=== PATIENT | female | born 1985 | race Caucasian/White ===

== ENCOUNTER 2017-01-05 23:33 | Emergency (ER) | payer SELFPAY ==
--- NOTE | 2017-01-06 01:59 | ED CLINICAL REPORT ---
Clinical Report - Physicians/Mid Levels [facility] [address] [place] [address] 01/05/2017 23:33 Patient: CAITLYN ESPINO Time Seen: 00:10. Arrived- By private vehicle. Historian- patient. HISTORY OF PRESENT ILLNESS Chief Complaint: LOWER EXTREMITY PAIN and SWELLING. Severity is described as being moderate. The quality is noted to be "pain" and similar to prior episodes. No radiation. This started yesterday and is still present (Ms Espino notes Right medial thigh tenderness similar to a prior DVT. Her sister has a clotting disorder. She believes that it is the Factor V Leiden defect.). Symptoms located in the area of the right thigh. The patient has not had redness. No swelling, bladder dysfunction, bowel dysfunction, sensory loss or motor loss. No difficulty walking. Patient denies an injury. Similar symptoms previously: Once. ( DVT). REVIEW OF SYSTEMS No fever, chest pain, cough, difficulty breathing or abdominal pain. No black stools, bloody stools or abnormal bleeding. PAST HISTORY ( PCP: Aaron Whitman Illness: DVT and bipolar illness). SOCIAL HISTORY Current every day smoker. FAMILY HISTORY ([place] with factor 5 Leyden). ADDITIONAL NOTES The nursing notes have been reviewed. PHYSICAL EXAM Vital Signs: 01/06/2017 02:04 BP: 116/76. HR: 95. RR: 16. O2 saturation: 100%. Pain level now: 03/14. 01/06/2017 01:38 BP: 122/87. HR: 87. RR: 16. O2 saturation: 100%. 01/05/2017 23:47 BP: 130/82. HR: 110. RR: 16. O2 saturation: 100%. Temp: 98.5 F. Pain level now: 10. Appearance: Alert. No acute distress. CVS: Heart sounds normal. Respiratory: No respiratory distress. Breath sounds normal. Abdomen: Soft and nontender. Skin: Skin warm. Normal skin color. Extremities: Right thigh: mild tenderness located in the medial aspect of mid thigh. Neurovascular intact distally. No erythema, swelling, abrasion, ecchymosis or foreign body. No deformity. No signs of infection involving the lower extremities. No lower extremity edema. Extremities otherwise negative. LABS, X-RAYS, AND EKG Lower Extremity Sonography: Name: CAITLYN ESPINO : 89 Sex: Female Age: 31 MR#: [id number] Pt Status: DEP ER Ordering Provider: LUIS MANUEL HERNANDEZ MD REPORT #: [id number] DATE OF EXAM(S): 01/06/17 PROCEDURE: US VENOUS - RIGHT EXT INDICATION: SWELLING TECHNIQUE: Duplex sonography of the deep venous system in the right lower extremity was performed. Compression and augmentation techniques were used. COMPARISON: None. FINDINGS: Each interrogated segment of deep vein from the common femoral vein into the calf veins demonstrates normal compressibility, augmentation and/or color Doppler flow without filling defect. The greater saphenous vein at the saphenous femoral junction is present. Greater saphenous vein in the proximal thigh demonstrates normal compressibility. The distal greater saphenous vein demonstrates expansile, incompressible, mildly hypoechoic filling defect and no visible flow or augmentation. IMPRESSION: 1. Occlusive thrombus in the distal greater saphenous vein in the calf and extending proximal to the popliteal region/distal thigh. 2. No thrombus within the deep system in the calf or thigh. Dictated by: ASHTYN CANADA MD D: ALONZO;01/06/17741 <Electronically signed by ASHTYN CANADA MD in [place]> 01/06/17741. PROGRESS AND PROCEDURES Course of Care: Ms Espino technically does not have a DVT. She has a long proximal SVT but she has a prior DVT and a sister with a clotting abnormality. I believe this warrants treating this episode as a DVT. 08:48 01/06/17. Discussed with Dr Canada. Following a discussion with Dr Canada following patient discharge she confirmed my thinking. I instructed charge nurse Juli Marshall RN to contact the patient by phone to confirm my intensions at the time of discharge. Disposition: Discharged. Condition: stable. CLINICAL IMPRESSION Deep venous thrombosis. Superficial thrombophlebitis of the right leg (possibly). INSTRUCTIONS (THIS IS PROBABLY A SUPERFICIAL THROMBOPHLEBITIS (BLOOD CLOT) BUT MIGHT BE A DEEP BLOOD CLOT AND YOU HAVE HAD A PRIOR BLOOD CLOT. I WILL TALK WITH THE RADIOLOGIST IN THE MORNING. FOR NOW YOU NEED TO TAKE LOVENOX BLOOD THINNER. YOU DR NEEDS TO CHECK YOU FOR CLOTTING PROBLEMS). Prescription Medications: Lovenox 100 mg SQ. Administer every 12 hours for 5 days. Dispense ten (10) pre-filled syringes. No refills. Follow-up: Follow up with your doctor. Call for the next available appointment. (Electronically signed by Luis Manuel Hernandez MD 01/07/2017 12:01) Addenda for CAITLYN ESPINO VisitID: [id number] Date: 01/05/2017 01/06/2017 10:39 1025 message left @[phone], per Dr Hernandez request, 1) inform her that she does need to be on the anticoagulant, 2) she needs to see her physician as soon as possible so he can get her started on an oral anticoagulant; she has a superficial blood clot in her leg but because of her hx and her family hx, Dr Hernandez and the Radiologist feel she needs to be treated with oral anticoagulants (was sent out with lovenox for 5 days) (Electronically signed by Juli Marshall R.N. - 01/06/2017 10:39) 01/06/2017 19:45 1925 pt returned call, advised her of Dr Hernandez's instructions: 1) she needs to be on oral anticoagulant; 2) she needs to be followed-up MICHOACANO with her primary to get that started; she stated she had an appt scheduled for next Thursday, but would call tomorrow and reschedule for sooner; questions answered; pt verbalized understanding of the importance of follow-up (Electronically signed by Juli Marshall R.N. - 01/06/2017 19:45)
--- NOTE | 2017-01-06 01:59 | ED ORDER SUMMARY ---
..... Patient: CAITLYN CUEVA N OrderSheet [facility] VisitID: [id number] [place] [address] 31y, F Registration Date/Time: 01/05/2017 ORDER SHEET Weight: 102.0 kg (stated) Allergies: No Known Drug Allergy GENERAL ORDERS: US Venous Right Urgent (00:14 01/06/2017 Maura VERDUGO) (Ack 0:18 Shari) (1:40 Valarie) MEDICATION ORDERS: Lovenox Subcut 100 mg (NOW) (01:57 01/06/2017 Maura VERDUGO) (Ack 2:02 JQuivey R.N.) (2:10 JQuiveish R.N.) IV FLUIDS: ORDER SHEET NOTES: [Electronically signed by Keenan Villavicencio R.N. (02:18 01/06/2017)] [Electronically signed by Chepe Doty MD (12:01 01/07/2017)] [Electronically locked/signed by Keenan Villavicencio R.N. (02:18 01/06/2017)]
--- NOTE | 2017-01-06 01:59 | ED NURSING NOTES ---
Clinical Report - Nurses [facility] [address] [place] [address] 01/05/2017 23:33 Patient: CAITLYN CUEVA TRIAGE Triage time 23:47 Jan 05 2017. Acuity: LEVEL 3. Chief Complaint: (right upper and lower leg pain). SEPSIS SCREEN: Sepsis Screen. Negative (no infection suspected/documented). JERILYN COMA SCORE: Jerilyn Coma Scale: 15- eyes open spontaneously (4); best verbal response- oriented x 4 (5); best motor response- obeys commands (6). --23:54 Joycelyn Ochoa R.N. 23:47 01/05/17. BP: 130/82. HR: 110. RR: 16. O2 saturation: 100%. Temp: 98.5 F. Pain level now: 01/12. --23:54 Joycelyn Ochoa R.N. Weight: 102 kg stated. Height/Length: 66 inches Per Patient. BMI: 36.3. --23:46 Joycelyn Ochoa R.N. Medications [facility]. --23:50 Joycelyn Ochoa R.N. Clonazepam. --23:50 Joycelyn Ochoa R.N. Zubsolv Sublingual. --23:50 Joycelyn Ochoa R.N. Medication/allergy information source: the patient. --23:54 Joycelyn Ochoa R.N. Allergies No Known Drug Allergy. --02:12 Keenan Villavicencio R.N. History Arrived by private vehicle. Historian: patient. Accompanied by family. Onset. (2 days). ( states pain started in lower leg 2 days ago and now feels like sludge is in your veins in your upper leg.). No fever, weakness, cough, difficulty breathing or skin rash. Denies muscle aches. Treatment CHILD NURSE: None. PAST MEDICAL HX: Last normal menstrual period- 1 weeks. SOCIAL HX: Heavy tobacco smoker (cigarette)- less than 1 pack per day. History of drug use: marijuana. No alcohol use. ABUSE ASSESSMENT: No report of abuse. SELF HARM ASSESSMENT: A self harm assessment was performed. The patient answered "no" to the question "Have you recently felt down, depressed, or hopeless?", "Have you noticed less interest or pleasure in doing things?", "Do you have thoughts of harming or killing yourself?", "Are you here because you tried to hurt yourself?", "Have you ever tried to hurt yourself before today?", "Have you recently had thoughts about harming or killing others?" and "Do you have any dangerous items in your possession?". FALL RISK ASSESSMENT: Fall risk assessment completed. No fall risk identified. NUTRITIONAL RISK ASSESSMENT: The nutritional risk assessment revealed no deficiencies. FUNCTIONAL ASSESSMENT: Functional assessment: no impairments noted. LEARNING NEEDS ASSESSMENT: The learning needs assessment revealed no barriers. SKIN INTEGRITY ASSESSMENT: Skin integrity risk assessment completed. No skin integrity risk identified. --23:54 Joycelyn Ochoa R.N. PROBLEMS: Bipolar Disorder. --23:53 Joycelyn Ochoa R.N. ADDITIONAL SURGERIES: Dental Surgery. --23:53 Joycelyn Ochoa R.N. Interventions ID band on patient. --23:54 Joycelyn Ochoa R.N. PHYSICAL ASSESSMENT 23:57 01/05/17. Ambulatory to room. GENERAL / NEURO / PSYCH: Alert. Oriented X 4. Appears in no acute distress. HEENT: Pupils equal, round and reactive to light. No facial asymmetry noted. Mucous membranes are pink. RESPIRATORY: Breath sounds within normal limits. CVS: ( negative Homans). Pulses within normal limits. GI / : Abdomen soft and nontender and normal bowel sounds. EXTREMITIES: No lower extremity edema. SKIN: Skin intact. Skin is warm and dry. Normal skin turgor. --23:58 Joycelyn Ochoa R.N. NURSING PROGRESS NOTES 23:57 01/05/17. The initial plan of care for this patient includes an assessment with efforts to address the presence of pain; additional testing; educational needs of the patient and family regarding the patient's medications and disease process. This plan of care was discussed with the patient. Patient gowned. Reassurance given. Patient identifiers checked. Call light placed in reach. Side rails up x 1. Bed placed in lowest position. Brakes of bed on. Patient ready for evaluation. --23:57 Joycelyn Ochoa R.N. 01:38 01/06/17. The patient reports no complaints and she is calm and resting quietly. Patient waiting for radiology results and disposition. --01:38 Joycelyn Ochoa R.N. 01:38 01/06/17. BP: 122/87. HR: 87. RR: 16. O2 saturation: 100%. Pain level now 01/12. --01:38 Joycelyn Ochoa R.N. 02:05 01/06/2017 Lovenox (Enoxaparin Sodium) Subcutaneous 100 mg given. Given in the left abdomen. Allergies verified and confirmed 5 rights. --02:10 Keenan Villavicencio R.N. 02:08. The patient is calm and resting quietly. RESPIRATORY: No respiratory distress. SKIN: Skin is warm and dry. Skin color within normal limits. --02:10 Keenan Villavicencio R.N. DISPOSITION / DISCHARGE Departure time: 02:09. Condition at departure: stable. No learning barriers present. Reviewed medication(s) side effects, precautions, dosing and course information. Prescription(s) given to the patient. Patient verbalized understanding. Written instructions provided in Filipino. The patient was discharged home and accompanied by sales contract administrator. She left the Emergency Department ambulatory and via private vehicle. Matzo Forming Machine Operator driving. FALL RISK ASSESSMENT: Fall risk assessment completed. No fall risk identified. --02:10 Keenan Villavicencio R.N. 02:04 01/06/17. BP: 116/76. HR: 95. RR: 16. O2 saturation: 100% on room air. Pain level now: 03/14. --02:10 Keenan Villavicencio R.N. 02:05 Patient reports having given herself Lovenox injections in the past. --02:14 Keenan Villavicencio R.N. Locked/Released at 01/06/2017 2:18 by Keenan Villavicencio R.N.
--- NOTE | 2017-01-06 01:59 | ED NURSING NOTES ---
Clinical Report - Nurses [facility] [address] [place] [address] 01/05/2017 23:33 Patient: CAITLYN CUEVA TRIAGE Triage time 23:47 Jan 05 2017. Acuity: LEVEL 3. Chief Complaint: (right upper and lower leg pain). SEPSIS SCREEN: Sepsis Screen. Negative (no infection suspected/documented). JERILYN COMA SCORE: Jerilyn Coma Scale: 15- eyes open spontaneously (4); best verbal response- oriented x 4 (5); best motor response- obeys commands (6). --23:54 Joycelyn Ochoa R.N. 23:47 01/05/17. BP: 130/82. HR: 110. RR: 16. O2 saturation: 100%. Temp: 98.5 F. Pain level now: 01/12. --23:54 Joycelyn Ochoa R.N. Weight: 102 kg stated. Height/Length: 66 inches Per Patient. BMI: 36.3. --23:46 Joycelyn Ochoa R.N. Medications [place]. --23:50 Joycelyn Ochoa R.N. Clonazepam. --23:50 Joycelyn Ochoa R.N. Zubsolv Sublingual. --23:50 Joycelyn Ochoa R.N. Medication/allergy information source: the patient. --23:54 Joycelyn Ochoa R.N. Allergies No Known Drug Allergy. --02:12 Keenan Villavicencio R.N. History Arrived by private vehicle. Historian: patient. Accompanied by family. Onset. (2 days). ( states pain started in lower leg 2 days ago and now feels like sludge is in your veins in your upper leg.). No fever, weakness, cough, difficulty breathing or skin rash. Denies muscle aches. Treatment SOLDERER ELECTRONIC: None. PAST MEDICAL HX: Last normal menstrual period- 1 weeks. SOCIAL HX: Heavy tobacco smoker (cigarette)- less than 1 pack per day. History of drug use: marijuana. No alcohol use. ABUSE ASSESSMENT: No report of abuse. SELF HARM ASSESSMENT: A self harm assessment was performed. The patient answered "no" to the question "Have you recently felt down, depressed, or hopeless?", "Have you noticed less interest or pleasure in doing things?", "Do you have thoughts of harming or killing yourself?", "Are you here because you tried to hurt yourself?", "Have you ever tried to hurt yourself before today?", "Have you recently had thoughts about harming or killing others?" and "Do you have any dangerous items in your possession?". FALL RISK ASSESSMENT: Fall risk assessment completed. No fall risk identified. NUTRITIONAL RISK ASSESSMENT: The nutritional risk assessment revealed no deficiencies. FUNCTIONAL ASSESSMENT: Functional assessment: no impairments noted. LEARNING NEEDS ASSESSMENT: The learning needs assessment revealed no barriers. SKIN INTEGRITY ASSESSMENT: Skin integrity risk assessment completed. No skin integrity risk identified. --23:54 Joycelyn Ochoa R.N. PROBLEMS: Bipolar Disorder. --23:53 Joycelyn Ochoa R.N. ADDITIONAL SURGERIES: Dental Surgery. --23:53 Joycelyn Ochoa R.N. Interventions ID band on patient. --23:54 Joycelyn Ochoa R.N. PHYSICAL ASSESSMENT 23:57 01/05/17. Ambulatory to room. GENERAL / NEURO / PSYCH: Alert. Oriented X 4. Appears in no acute distress. HEENT: Pupils equal, round and reactive to light. No facial asymmetry noted. Mucous membranes are pink. RESPIRATORY: Breath sounds within normal limits. CVS: ( negative Homans). Pulses within normal limits. GI / : Abdomen soft and nontender and normal bowel sounds. EXTREMITIES: No lower extremity edema. SKIN: Skin intact. Skin is warm and dry. Normal skin turgor. --23:58 Joycelyn Ochoa R.N. NURSING PROGRESS NOTES 23:57 01/05/17. The initial plan of care for this patient includes an assessment with efforts to address the presence of pain; additional testing; educational needs of the patient and family regarding the patient's medications and disease process. This plan of care was discussed with the patient. Patient gowned. Reassurance given. Patient identifiers checked. Call light placed in reach. Side rails up x 1. Bed placed in lowest position. Brakes of bed on. Patient ready for evaluation. --23:57 Joycelyn Ochoa R.N. 01:38 01/06/17. The patient reports no complaints and she is calm and resting quietly. Patient waiting for radiology results and disposition. --01:38 Joycelyn Ochoa R.N. 01:38 01/06/17. BP: 122/87. HR: 87. RR: 16. O2 saturation: 100%. Pain level now 01/12. --01:38 Joycelyn Ochoa R.N. 02:05 01/06/2017 Lovenox (Enoxaparin Sodium) Subcutaneous 100 mg given. Given in the left abdomen. Allergies verified and confirmed 5 rights. --02:10 Keenan Villavicencio R.N. 02:08. The patient is calm and resting quietly. RESPIRATORY: No respiratory distress. SKIN: Skin is warm and dry. Skin color within normal limits. --02:10 Keenan Villavicencio R.N. DISPOSITION / DISCHARGE Departure time: 02:09. Condition at departure: stable. No learning barriers present. Reviewed medication(s) side effects, precautions, dosing and course information. Prescription(s) given to the patient. Patient verbalized understanding. Written instructions provided in Armenian. The patient was discharged home and accompanied by inspector automatic typewriter. She left the Emergency Department ambulatory and via private vehicle. Food And Beverage Intern driving. FALL RISK ASSESSMENT: Fall risk assessment completed. No fall risk identified. --02:10 Keenan Villavicencio R.N. 02:04 01/06/17. BP: 116/76. HR: 95. RR: 16. O2 saturation: 100% on room air. Pain level now: 03/14. --02:10 Keenan Villavicencio R.N. 02:05 Patient reports having given herself Lovenox injections in the past. --02:14 Keenan Villavicencio R.N. Locked/Released at 01/06/2017 2:18 by Keenan Villavicencio R.N.
--- NOTE | 2017-01-06 01:59 | ED ORDER SUMMARY ---
..... Patient: CAITLYN CUEVA N OrderSheet [facility] VisitID: [id number] [place] [address] 31y, F Registration Date/Time: 01/05/2017 ORDER SHEET Weight: 102.0 kg (stated) Allergies: No Known Drug Allergy GENERAL ORDERS: US Venous Right Urgent (00:14 01/06/2017 Maura VERDUGO) (Ack 0:18 Shari) (1:40 Valarie) MEDICATION ORDERS: Lovenox Subcut 100 mg (NOW) (01:57 01/06/2017 Maura VERDUGO) (Ack 2:02 JQuivey R.N.) (2:10 JQuiveish R.N.) IV FLUIDS: ORDER SHEET NOTES: [Electronically signed by Keenan Villavicencio R.N. (02:18 01/06/2017)] [Electronically signed by Chepe Doty MD (12:01 01/07/2017)] [Electronically locked/signed by Keenan Villavicencio R.N. (02:18 01/06/2017)]
--- NOTE | 2017-01-06 01:59 | ED CLINICAL REPORT ---
Clinical Report - Physicians/Mid Levels [facility] [address] [place] [address] 01/05/2017 23:33 Patient: CAITLYN ESPINO Time Seen: 00:10. Arrived- By private vehicle. Historian- patient. HISTORY OF PRESENT ILLNESS Chief Complaint: LOWER EXTREMITY PAIN and SWELLING. Severity is described as being moderate. The quality is noted to be "pain" and similar to prior episodes. No radiation. This started yesterday and is still present (Ms Espino notes Right medial thigh tenderness similar to a prior DVT. Her sister has a clotting disorder. She believes that it is the Factor V Leiden defect.). Symptoms located in the area of the right thigh. The patient has not had redness. No swelling, bladder dysfunction, bowel dysfunction, sensory loss or motor loss. No difficulty walking. Patient denies an injury. Similar symptoms previously: Once. ( DVT). REVIEW OF SYSTEMS No fever, chest pain, cough, difficulty breathing or abdominal pain. No black stools, bloody stools or abnormal bleeding. PAST HISTORY ( PCP: Aaron Whitman Illness: DVT and bipolar illness). SOCIAL HISTORY Current every day smoker. FAMILY HISTORY ([place] with factor 5 Leyden). ADDITIONAL NOTES The nursing notes have been reviewed. PHYSICAL EXAM Vital Signs: 01/06/2017 02:04 BP: 116/76. HR: 95. RR: 16. O2 saturation: 100%. Pain level now: 03/14. 01/06/2017 01:38 BP: 122/87. HR: 87. RR: 16. O2 saturation: 100%. 01/05/2017 23:47 BP: 130/82. HR: 110. RR: 16. O2 saturation: 100%. Temp: 98.5 F. Pain level now: 10. Appearance: Alert. No acute distress. CVS: Heart sounds normal. Respiratory: No respiratory distress. Breath sounds normal. Abdomen: Soft and nontender. Skin: Skin warm. Normal skin color. Extremities: Right thigh: mild tenderness located in the medial aspect of mid thigh. Neurovascular intact distally. No erythema, swelling, abrasion, ecchymosis or foreign body. No deformity. No signs of infection involving the lower extremities. No lower extremity edema. Extremities otherwise negative. LABS, X-RAYS, AND EKG Lower Extremity Sonography: Name: CAITLYN ESPINO : 89 Sex: Female Age: 31 MR#: [id number] Pt Status: DEP ER Ordering Provider: LUIS MANUEL HERNANDEZ MD REPORT #: [id number] DATE OF EXAM(S): 01/06/17 PROCEDURE: US VENOUS - RIGHT EXT INDICATION: SWELLING TECHNIQUE: Duplex sonography of the deep venous system in the right lower extremity was performed. Compression and augmentation techniques were used. COMPARISON: None. FINDINGS: Each interrogated segment of deep vein from the common femoral vein into the calf veins demonstrates normal compressibility, augmentation and/or color Doppler flow without filling defect. The greater saphenous vein at the saphenous femoral junction is present. Greater saphenous vein in the proximal thigh demonstrates normal compressibility. The distal greater saphenous vein demonstrates expansile, incompressible, mildly hypoechoic filling defect and no visible flow or augmentation. IMPRESSION: 1. Occlusive thrombus in the distal greater saphenous vein in the calf and extending proximal to the popliteal region/distal thigh. 2. No thrombus within the deep system in the calf or thigh. Dictated by: ASHTYN CANADA MD D: ALONZO;01/06/17741 <Electronically signed by ASHTYN CANADA MD in OV> 01/06/17741. PROGRESS AND PROCEDURES Course of Care: Ms Espino technically does not have a DVT. She has a long proximal SVT but she has a prior DVT and a sister with a clotting abnormality. I believe this warrants treating this episode as a DVT. 08:48 01/06/17. Discussed with Dr Canada. Following a discussion with Dr Canada following patient discharge she confirmed my thinking. I instructed charge nurse Juli Marshall RN to contact the patient by phone to confirm my intensions at the time of discharge. Disposition: Discharged. Condition: stable. CLINICAL IMPRESSION Deep venous thrombosis. Superficial thrombophlebitis of the right leg (possibly). INSTRUCTIONS (THIS IS PROBABLY A SUPERFICIAL THROMBOPHLEBITIS (BLOOD CLOT) BUT MIGHT BE A DEEP BLOOD CLOT AND YOU HAVE HAD A PRIOR BLOOD CLOT. I WILL TALK WITH THE RADIOLOGIST IN THE MORNING. FOR NOW YOU NEED TO TAKE LOVENOX BLOOD THINNER. YOU DR NEEDS TO CHECK YOU FOR CLOTTING PROBLEMS). Prescription Medications: Lovenox 100 mg SQ. Administer every 12 hours for 5 days. Dispense ten (10) pre-filled syringes. No refills. Follow-up: Follow up with your doctor. Call for the next available appointment. (Electronically signed by Luis Manuel Hernandez MD 01/07/2017 12:01) Addenda for CAITLYN ESPINO VisitID: [id number] Date: 01/05/2017 01/06/2017 10:39 1025 message left @[phone], per Dr Hernandez request, 1) inform her that she does need to be on the anticoagulant, 2) she needs to see her physician as soon as possible so he can get her started on an oral anticoagulant; she has a superficial blood clot in her leg but because of her hx and her family hx, Dr Hernandez and the Radiologist feel she needs to be treated with oral anticoagulants (was sent out with lovenox for 5 days) (Electronically signed by Juli Marshall R.N. - 01/06/2017 10:39) 01/06/2017 19:45 1925 pt returned call, advised her of Dr Hernandez's instructions: 1) she needs to be on oral anticoagulant; 2) she needs to be followed-up MICHOACANO with her primary to get that started; she stated she had an appt scheduled for next Thursday, but would call tomorrow and reschedule for sooner; questions answered; pt verbalized understanding of the importance of follow-up (Electronically signed by Juli Marshall R.N. - 01/06/2017 19:45)
--- NOTE | 2017-01-06 07:42 | DIAGNOSTIC IMAGING REPORT ---
PROCEDURE: US VENOUS - RIGHT EXT INDICATION: SWELLING TECHNIQUE: Duplex sonography of the deep venous system in the right lower extremity was performed. Compression and augmentation techniques were used. COMPARISON: None. FINDINGS: Each interrogated segment of deep vein from the common femoral vein into the calf veins demonstrates normal compressibility, augmentation and/or color Doppler flow without filling defect. The greater saphenous vein at the saphenous femoral junction is present. Greater saphenous vein in the proximal thigh demonstrates normal compressibility. The distal greater saphenous vein demonstrates expansile, incompressible, mildly hypoechoic filling defect and no visible flow or augmentation. IMPRESSION: 1. Occlusive thrombus in the distal greater saphenous vein in the calf and extending proximal to the popliteal region/distal thigh. 2. No thrombus within the deep system in the calf or thigh.
--- NOTE | 2017-01-07 12:01 | ED MED RECONCILIATION SUMMARY ---
Patient: CAITLYN CUEVA Medication Reconciliation Report [facility] VisitID: [id number] [address] [place] [address] 31y, F Registration Date/Time: 01/05/2017 Weight: 102.0 kg Height/Length: 66 in. BMI: 36.3 ALLERGIES: No Known Drug Allergy The patient's Home Medications are listed below: THE FOLLOWING MEDICATIONS NEED TO BE RECONCILED: Clonazepam [place] Zubsolv Sublingual The source(s) of the original Home Medication information: patient The following Medications were given to the patient in the Emergency Department: Lovenox [Subcutaneous] Subcutaneous 100 mg, administered: 01/06/2017 2:05:00 AM The following Medications were prescribed to the patient: Lovenox 100 mg SQ. Administer every 12 hours for 5 days. Dispense ten (10) pre-filled syringes. No refills. -- Chepe Doty MD
--- NOTE | 2017-01-07 12:01 | ED MAR SUMMARY ---
..... Medication Administration Record [facility] [address] [place] [address] Patient: CAITLYN CUEVA Visit ID: [id number] 31y, F Weight: 102.0 kg Height/Length: 66 in BMI: 36.3 ALLERGIES: No Known Drug Allergy Given 02:05 01/06/2017 Keenan Villavicencio REstrellitaNEstrellita Medication Administered: LOVENOX [SUBCUTANEOUS] (ENOXAPARIN SODIUM), Dose: 100 mg Subcutaneous. Medication Ordered: Lovenox Subcut 100 mg (NOW).
--- NOTE | 2017-01-07 12:01 | ED MED RECONCILIATION SUMMARY ---
Patient: CAITLYN CUEVA Medication Reconciliation Report [facility] VisitID: [id number] [address] [place] [address] 31y, F Registration Date/Time: 01/05/2017 Weight: 102.0 kg Height/Length: 66 in. BMI: 36.3 ALLERGIES: No Known Drug Allergy The patient's Home Medications are listed below: THE FOLLOWING MEDICATIONS NEED TO BE RECONCILED: Clonazepam [place] Zubsolv Sublingual The source(s) of the original Home Medication information: patient The following Medications were given to the patient in the Emergency Department: Lovenox [Subcutaneous] Subcutaneous 100 mg, administered: 01/06/2017 2:05:00 AM The following Medications were prescribed to the patient: Lovenox 100 mg SQ. Administer every 12 hours for 5 days. Dispense ten (10) pre-filled syringes. No refills. -- Chepe Doty MD
--- NOTE | 2017-01-07 12:01 | ED DISCHARGE INSTRUCTIONS ---
Patient: CAITLYN CUEVA General Instructions [facility] VisitID: [id number] [place] [address] 31y, F Registration Date/Time: 01/05/2017 Deep venous thrombosis. Superficial thrombophlebitis of the right leg (possibly). INSTRUCTIONS (THIS IS PROBABLY A SUPERFICIAL THROMBOPHLEBITIS (BLOOD CLOT) BUT MIGHT BE A DEEP BLOOD CLOT AND YOU HAVE HAD A PRIOR BLOOD CLOT. I WILL TALK WITH THE RADIOLOGIST IN THE MORNING. FOR NOW YOU NEED TO TAKE LOVENOX BLOOD THINNER. YOU DR NEEDS TO CHECK YOU FOR CLOTTING PROBLEMS). Prescription Medications: Lovenox 100 mg SQ. Administer every 12 hours for 5 days. Dispense ten (10) pre-filled syringes. No refills. Follow-up: Follow up with your doctor. Call for the next available appointment. ADDITIONAL INFORMATION Deep Vein Thrombosis Deep Vein Thrombosis (DVT) means there is a blood clot in a deep vein of the leg. This may cause redness, swelling, warmth and pain of the leg. If the blood clot grows larger, a piece may break off and go to the lungs (pulmonary embolus) or to the brain (stroke). Factors that increase risk of a DVT include: overweight, smoking, use of estrogen replacement therapy. Prolonged periods without movement (such as long distance travel, wearing a fracture cast, and prolonged bed rest after surgery or during an illness) also increases the risk of a DVT. Home Care: Stay off the affected leg as much as possible during the next week. When sitting or lying down, keep the leg elevated. Compression stockings may be advised to improve blood flow in the lower legs. When resting, move your ankles, toes and knees frequently to stimulate blood flow. You will be prescribed an anti-coagulant medicine (pills or shots). Take it exactly as directed. Follow Up with your doctor as advised. NOTE: A radiologist will review any X-rays that were taken. We will notify you of any new findings that may affect your care. Get Prompt Medical Attention if any of the following occur: Shortness of breath or painful breathing Chest pain, repeated cough or coughing up blood Fever of 100.4F (38C) or higher, or as directed by your healthcare provider Increasing swelling or increasing pain in the leg Spreading redness Unexpected bleeding (nose, gums, cuts, urinary tract, vagina, rectum) Phlebitis, Superficial Phlebitis is the name for inflammation of a vein. This results in local redness, swelling, warmth and pain. This may occur after medicine has been given by vein as a result of the irritating effect of the medicine. It can also occur as a result of IV drug use. Superficial phlebitis involves only those veins close to the surface. There is no danger of a clot traveling to the lung or brain, unlike deep blood clots of the legs. Therefore, this condition can be safely treated at home. Home Care: Heat is helpful. Use a heating pad or soak the inflamed part in a hot tub for 10 minutes at a time. You may use ibuprofen (Motrin, Advil) to control pain, unless another medicine was prescribed. [ NOTE : If you have chronic kidney disease or ever had a stomach ulcer or GI bleeding, talk with your doctor before using these medicines.] If Your Leg Is Affected: Unless pain is severe, you may walk. It is important to sit often and elevate the leg. Avoid prolonged sitting or standing. Use support hose or an elastic wrap to compress the leg and reduce swelling. If Your Arm Is Affected: Elevate the arm. If you were given a sling, take your arm out from time to time and move it around to increase the circulation. Use an elastic wrap if there is a lot of swelling. Follow Up with your doctor as advised. Get Prompt Medical Attention if any of the following occur: Shortness of breath or painful breathing Chest pain or cough Fever of 100.4F (38C) or higher, or as directed by your healthcare provider Increasing swelling or pain Spreading redness Enoxaparin Sodium (Porcine) Solution for injection What is this medicine? ENOXAPARIN (ee nox a PA rin) is used after knee, hip, or abdominal surgeries to prevent blood clotting. It is also used to treat existing blood clots in the lungs or in the veins. How should I use this medicine? This medicine is for injection under the skin. It is usually given by a health-home care music therapist. You or a family member may be trained on how to give the injections. If you are to give yourself injections, make sure you understand how to use the syringe, measure the dose if necessary, and give the injection. To avoid bruising, do not rub the site where this medicine has been injected. Do not take your medicine more often than directed. Do not stop taking except on the advice of your doctor or health home care music therapist. Make sure you receive a puncture-resistant container to dispose of the needles and syringes once you have finished with them. Do not reuse these items. Return the container to your doctor or health home care music therapist for proper disposal. Talk to your ent consultant regarding the use of this medicine in children. Special care may be needed. What side effects may I notice from receiving this medicine? Side effects that you should report to your doctor or health home care music therapist as soon as possible: allergic reactions like skin rash, itching or hives, swelling of the face, lips, or tongue dark urine feeling faint or lightheaded, falls fever heavy menstrual bleeding signs and symptoms of bleeding such as bloody or black, tarry stools; red or dark-brown urine; spitting up blood or brown material that looks like coffee grounds; red spots on the skin; unusual bruising or bleeding from the eye, gums, or nose signs and symptoms of a blood clot such as breathing problems; changes in vision; chest pain; severe, sudden headache; pain, swelling, warmth in the leg; trouble speaking; sudden numbness or weakness of the face, arm, or leg Side effects that usually do not require medical attention (report to your doctor or health home care music therapist if they continue or are bothersome): pain or irritation at the injection site What may interact with this medicine? Do not take this medicine with any of the following medications: -aspirin and aspirin-like medicines -heparin -mifepristone -palifermin -warfarin This medicine may also interact with the following medications: -cilostazol -clopidogrel -dipyridamole -NSAIDs, medicines for pain and inflammation, like ibuprofen or naproxen -sulfinpyrazone -ticlopidine What if I miss a dose? If you miss a dose, take it as soon as you can. If it is almost time for your next dose, take only that dose. Do not take double or extra doses. Where should I keep my medicine? Keep out of the reach of children. Store at room temperature between 15 and 30 degrees C (59 and 86 degrees F). Do not freeze. If your injections have been specially prepared, you may need to store them in the refrigerator. Ask your pharmacist. Throw away any unused medicine after the expiration date. What should I tell my health care provider before I take this medicine? They need to know if you have any of these conditions: bleeding disorders, hemorrhage, or hemophilia infection of the heart or heart valves kidney or liver disease previous stroke prosthetic heart valve recent surgery or delivery of a baby ulcer in the stomach or intestine, diverticulitis, or other bowel disease an unusual or allergic reaction to enoxaparin, heparin, pork or pork products, other medicines, foods, dyes, or preservatives or trying to get breast-feeding What should I watch for while using this medicine? Visit your doctor or health home care music therapist for regular checks on your progress. Your condition will be monitored carefully while you are receiving this medicine. If you are going to have surgery, tell your doctor or health home care music therapist that you are taking this medicine. Do not stop taking this medicine without first talking to your doctor. Be sure to refill your prescription before you run out of medicine. Avoid sports and activities that might cause injury while you are using this medicine. Severe falls or injuries can cause unseen bleeding. Be careful when using sharp tools or knives. Consider using an electric razor. Take special care brushing or flossing your teeth. Report any injuries, bruising, or red spots on the skin to your doctor or health home care music therapist. You have been given the following additional information: DVT Thrombophlebitis, Superficial Enoxaparin Sodium (Porcine) Solution for injection (Electronically signed by Chepe Doty MD 01/07/2017 12:01)
--- NOTE | 2017-01-07 12:01 | ED MAR SUMMARY ---
..... Medication Administration Record [facility] [address] [place] [address] Patient: CAITLYN CUEVA Visit ID: [id number] 31y, F Weight: 102.0 kg Height/Length: 66 in BMI: 36.3 ALLERGIES: No Known Drug Allergy Given 02:05 01/06/2017 Keenan Villavicencio REstrellitaNEstrellita Medication Administered: LOVENOX [SUBCUTANEOUS] (ENOXAPARIN SODIUM), Dose: 100 mg Subcutaneous. Medication Ordered: Lovenox Subcut 100 mg (NOW).
--- NOTE | 2017-01-07 12:01 | ED DISCHARGE INSTRUCTIONS ---
Patient: CAITLYN CUEVA General Instructions [facility] VisitID: [id number] [place] [address] 31y, F Registration Date/Time: 01/05/2017 Deep venous thrombosis. Superficial thrombophlebitis of the right leg (possibly). INSTRUCTIONS (THIS IS PROBABLY A SUPERFICIAL THROMBOPHLEBITIS (BLOOD CLOT) BUT MIGHT BE A DEEP BLOOD CLOT AND YOU HAVE HAD A PRIOR BLOOD CLOT. I WILL TALK WITH THE RADIOLOGIST IN THE MORNING. FOR NOW YOU NEED TO TAKE LOVENOX BLOOD THINNER. YOU DR NEEDS TO CHECK YOU FOR CLOTTING PROBLEMS). Prescription Medications: Lovenox 100 mg SQ. Administer every 12 hours for 5 days. Dispense ten (10) pre-filled syringes. No refills. Follow-up: Follow up with your doctor. Call for the next available appointment. ADDITIONAL INFORMATION Deep Vein Thrombosis Deep Vein Thrombosis (DVT) means there is a blood clot in a deep vein of the leg. This may cause redness, swelling, warmth and pain of the leg. If the blood clot grows larger, a piece may break off and go to the lungs (pulmonary embolus) or to the brain (stroke). Factors that increase risk of a DVT include: overweight, smoking, use of estrogen replacement therapy. Prolonged periods without movement (such as long distance travel, wearing a fracture cast, and prolonged bed rest after surgery or during an illness) also increases the risk of a DVT. Home Care: Stay off the affected leg as much as possible during the next week. When sitting or lying down, keep the leg elevated. Compression stockings may be advised to improve blood flow in the lower legs. When resting, move your ankles, toes and knees frequently to stimulate blood flow. You will be prescribed an anti-coagulant medicine (pills or shots). Take it exactly as directed. Follow Up with your doctor as advised. NOTE: A radiologist will review any X-rays that were taken. We will notify you of any new findings that may affect your care. Get Prompt Medical Attention if any of the following occur: Shortness of breath or painful breathing Chest pain, repeated cough or coughing up blood Fever of 100.4F (38C) or higher, or as directed by your healthcare provider Increasing swelling or increasing pain in the leg Spreading redness Unexpected bleeding (nose, gums, cuts, urinary tract, vagina, rectum) Phlebitis, Superficial Phlebitis is the name for inflammation of a vein. This results in local redness, swelling, warmth and pain. This may occur after medicine has been given by vein as a result of the irritating effect of the medicine. It can also occur as a result of IV drug use. Superficial phlebitis involves only those veins close to the surface. There is no danger of a clot traveling to the lung or brain, unlike deep blood clots of the legs. Therefore, this condition can be safely treated at home. Home Care: Heat is helpful. Use a heating pad or soak the inflamed part in a hot tub for 10 minutes at a time. You may use ibuprofen (Motrin, Advil) to control pain, unless another medicine was prescribed. [ NOTE : If you have chronic kidney disease or ever had a stomach ulcer or GI bleeding, talk with your doctor before using these medicines.] If Your Leg Is Affected: Unless pain is severe, you may walk. It is important to sit often and elevate the leg. Avoid prolonged sitting or standing. Use support hose or an elastic wrap to compress the leg and reduce swelling. If Your Arm Is Affected: Elevate the arm. If you were given a sling, take your arm out from time to time and move it around to increase the circulation. Use an elastic wrap if there is a lot of swelling. Follow Up with your doctor as advised. Get Prompt Medical Attention if any of the following occur: Shortness of breath or painful breathing Chest pain or cough Fever of 100.4F (38C) or higher, or as directed by your healthcare provider Increasing swelling or pain Spreading redness Enoxaparin Sodium (Porcine) Solution for injection What is this medicine? ENOXAPARIN (ee nox a PA rin) is used after knee, hip, or abdominal surgeries to prevent blood clotting. It is also used to treat existing blood clots in the lungs or in the veins. How should I use this medicine? This medicine is for injection under the skin. It is usually given by a health-ostomy care nurse. You or a family member may be trained on how to give the injections. If you are to give yourself injections, make sure you understand how to use the syringe, measure the dose if necessary, and give the injection. To avoid bruising, do not rub the site where this medicine has been injected. Do not take your medicine more often than directed. Do not stop taking except on the advice of your doctor or health ostomy care nurse. Make sure you receive a puncture-resistant container to dispose of the needles and syringes once you have finished with them. Do not reuse these items. Return the container to your doctor or health ostomy care nurse for proper disposal. Talk to your clerk manager regarding the use of this medicine in children. Special care may be needed. What side effects may I notice from receiving this medicine? Side effects that you should report to your doctor or health ostomy care nurse as soon as possible: allergic reactions like skin rash, itching or hives, swelling of the face, lips, or tongue dark urine feeling faint or lightheaded, falls fever heavy menstrual bleeding signs and symptoms of bleeding such as bloody or black, tarry stools; red or dark-brown urine; spitting up blood or brown material that looks like coffee grounds; red spots on the skin; unusual bruising or bleeding from the eye, gums, or nose signs and symptoms of a blood clot such as breathing problems; changes in vision; chest pain; severe, sudden headache; pain, swelling, warmth in the leg; trouble speaking; sudden numbness or weakness of the face, arm, or leg Side effects that usually do not require medical attention (report to your doctor or health ostomy care nurse if they continue or are bothersome): pain or irritation at the injection site What may interact with this medicine? Do not take this medicine with any of the following medications: -aspirin and aspirin-like medicines -heparin -mifepristone -palifermin -warfarin This medicine may also interact with the following medications: -cilostazol -clopidogrel -dipyridamole -NSAIDs, medicines for pain and inflammation, like ibuprofen or naproxen -sulfinpyrazone -ticlopidine What if I miss a dose? If you miss a dose, take it as soon as you can. If it is almost time for your next dose, take only that dose. Do not take double or extra doses. Where should I keep my medicine? Keep out of the reach of children. Store at room temperature between 15 and 30 degrees C (59 and 86 degrees F). Do not freeze. If your injections have been specially prepared, you may need to store them in the refrigerator. Ask your pharmacist. Throw away any unused medicine after the expiration date. What should I tell my health care provider before I take this medicine? They need to know if you have any of these conditions: bleeding disorders, hemorrhage, or hemophilia infection of the heart or heart valves kidney or liver disease previous stroke prosthetic heart valve recent surgery or delivery of a baby ulcer in the stomach or intestine, diverticulitis, or other bowel disease an unusual or allergic reaction to enoxaparin, heparin, pork or pork products, other medicines, foods, dyes, or preservatives or trying to get breast-feeding What should I watch for while using this medicine? Visit your doctor or health ostomy care nurse for regular checks on your progress. Your condition will be monitored carefully while you are receiving this medicine. If you are going to have surgery, tell your doctor or health ostomy care nurse that you are taking this medicine. Do not stop taking this medicine without first talking to your doctor. Be sure to refill your prescription before you run out of medicine. Avoid sports and activities that might cause injury while you are using this medicine. Severe falls or injuries can cause unseen bleeding. Be careful when using sharp tools or knives. Consider using an electric razor. Take special care brushing or flossing your teeth. Report any injuries, bruising, or red spots on the skin to your doctor or health ostomy care nurse. You have been given the following additional information: DVT Thrombophlebitis, Superficial Enoxaparin Sodium (Porcine) Solution for injection (Electronically signed by Chepe Doty MD 01/07/2017 12:01)
== END 2017-01-06 02:09 | disposition home or self-care (01) ==
LOC: ED SRH 23:33
DX: I82.409 Acute embolism and thrombosis of unspecified deep veins of unspecified lower extremity (principal); Z86.718 Personal history of other venous thrombosis and embolism; F17.200 Nicotine dependence, unspecified, uncomplicated

== ENCOUNTER 2017-02-19 16:40 | Inpatient (IN) | payer SELFPAY ==
[~2017-02-19] VITALS: Ht 165.1 cm; Wt 106.7 kg
--- NOTE | 2017-02-19 19:12 | DIAGNOSTIC IMAGING REPORT ---
PROCEDURE: US VENOUS - RIGHT EXT INDICATION: RIGHT ARM PAIN TECHNIQUE: Duplex sonography of the deep venous system in the right upper extremity was performed. Compression and augmentation techniques were used. COMPARISON: None. FINDINGS: Echogenic occlusive thrombus of the basilic vein in the mid to distal upper arm. Internal jugular, subclavian, axillary cephalic veins are patent. IMPRESSION: 1. Occlusive thrombus of the right basilic vein .
--- NOTE | 2017-02-19 20:21 | ED NURSING NOTES ---
Clinical Report - Nurses [facility] [address] [place] [address] 02/19/2017 16:41 Patient: CAITLYN CUEVA TRIAGE Triage time 1648. Acuity: LEVEL 3. Chief Complaint: RIGHT UPPER EXTREMITY PAIN and SWELLING. Location of symptoms- (feels like previous blood clots). 16:48. --17:00 Monique Reynaga R.N. 16:48 02/19/17. BP: 141/94. HR: 89. RR: 18. O2 saturation: 99%. Temp: 98.6 F. Pain level now: 01/12. --17:00 Monique Reynaga R.N. Weight: 104.3 kg stated. Height/Length: 65.5 inches Per Patient. BMI: 37.7. --16:54 Monique Reynaga R.N. Medications Clonazepam 1/2mg daily. [place] 150mg TID (hasnt had x 2 months ). Zubsolv Sublingual (Tablet Sublingual 1.4-0.36 mg) 1-1/2 tablets, daily. --16:57 Monique Reynaga R.N. Venlafaxine HCl Oral 100 mg, daily. --16:59 Monique Reynaga R.N. The following entry was struck and corrected by Monique Reynaga R.N., 16:59 (02/19/17) Reason for correction - other(correction). <<STRICKEN ENTRY-- Clonazepam 1/2mg daily. --16:57 Monique Reynaga R.N. --END STRIKE>>. Allergies No Known Drug Allergy. --16:57 Monique Reynaga R.N. History Arrived by private vehicle. Historian: patient. Accompanied by mother. Primary physician (Cruz miranda in clinic in [place]). No injury occurred. This occurred (2 days ago). She has had swelling. PAST MEDICAL HX: Last normal menstrual period- 3 weeks. SOCIAL HX: Light tobacco smoker (cigarette)- less than 1/2 a pack per day. Occasional alcohol use. (dropped back from daily to only occasionally 4 months ago). History of drug use: marijuana. --17:00 Monique Reynaga R.N. PROBLEMS: Superficial Thrombophlebitis. DVT - Deep Venous Thrombosis. Bipolar Disorder. --16:55 Monique Reynaga R.N. ADDITIONAL SURGERIES: Dental Surgery. --16:55 Monique Reynaga R.N. Interventions ID band on patient. To treatment room. --17:00 Monique Reynaga R.N. PHYSICAL ASSESSMENT 16:48. Ambulatory to room. Patient gowned. GENERAL / NEURO / PSYCH: Alert. Appears anxious. EXTREMITIES: Right elbow: (pt having pressure/pain "throbbing, heavy and tight" to inside of right elbow area. simular presentation with previous blood clots). SKIN: Skin is warm. --17:03 Monique Reynaga R.N. NURSING PROGRESS NOTES 16:48. Patient gowned. Patient identifiers checked. Call light placed in reach. Side rails up. Bed placed in lowest position. Patient ready for evaluation- chart flagged. --17:00 Monique Reynaga R.N. 16:56 02/19/2017 Site #1 started via IV in the left antecubital space with an 20g angiocath, with aseptic technique and good blood return; one attempt. Blood drawn: rainbow set. Labeled in the presence of the patient and sent to the lab. Saline lock flushed with saline (drawn by MARCUS Khan). --17:01 Monique Reynaga R.N. 17:22 02/19/2017 Morphine IVP 4 mg given over 1 minute(s) via site #1. Sedative warning given to the patient. IV patency established. IV site checked: no pain, redness, or swelling. IV flushed thoroughly pre- and post-medication administration. IVP given by RN. --17:22 Monique Reynaga R.N. 17:00. ( Pt given cool cloth for forehead, states she feels lightheaded due to IV site). --17:45 Monique Reynaga R.N. 18:10. ( Pt going to US for arm work up). --18:13 Monique Reynaga R.N. 18:42 02/19/17. Patient walked back to ED from sonogram with tech. (pt in no distress, walking without difficulty, smiling talking to mom). --18:42 Monique Reynaga R.N. 19:40 02/19/17. BP: 152/94. HR: 102. RR: 18. O2 saturation: 100%. Temp: deferred. Pain level now: 02/11. Additional comments: Pt and mom watching t.v. waiting for results. --20:33 Monique Reynaga R.N. 20:30. ( Pt given new gown, making lists with mom for things to bring for admission. waiting on room assignment). --20:36 Monique Reynaga R.N. 20:30 02/19/17. BP: 154/90. HR: 98. RR: 20. O2 saturation: 100%. Temp: deferred. Pain level now: 02/11. Additional comments: still c/o pain after US exam . --20:36 Monique Reynaga R.N. ( H+P FORM GIVEN). --20:59 Farhat Chavarria, ER Health Technician Hearing 21:00 02/19/2017 NICODERM Topical Patch/Pad 21 mg. Applied to the left upper arm. Allergies verified and confirmed 5 rights. --21:00 Monique Reynaga R.N. 21:23 02/19/17. ( Pt ambulated to bathroom, steady on feet. no c/o). --21:23 Monique Reynaga R.N. 21:30 02/19/2017 Lovenox (Enoxaparin Sodium) Subcutaneous 100 mg given. Given in the right abdomen. (pt gave meds to herself). --21:30 Monique Reynaga R.N. 21:30 02/19/17. BP: 149/90. HR: 96. RR: 18. O2 saturation: 99%. Temp: deferred. Pain level now: 03/14. Additional comments: asking for pain meds. --21:30 Monique Reynaga R.N. 21:55 02/19/2017 Morphine IVP 4 mg given over 1 minute(s) via site #1. Sedative warning given to the patient. IV patency established. IV site checked: no pain, redness, or swelling. IV flushed thoroughly pre- and post-medication administration. IVP given by RN. --22:09 Monique Reynaga R.N. 22:02/19/2017 Ativan (LORazepam) IVP 0.5 mg given over 1 minute(s) via site #1. IV patency established. IV site checked: no pain, redness, or swelling. IV flushed thoroughly pre- and post-medication administration. --22:10 Monique Reynaga R.N. 22:24 02/19/17. BP: 126/77. HR: 94. RR: 16. O2 saturation: 99%. --22:25 Ayala Rubio R.N. 22:20 02/19/2017 Site #[address] upon admission; patent. --22:35 Monique Reynaga R.N. 22:02/19/2017 IV Saline Lock Drip IV Continued: upon admission at the rate of 0 mL/hr bag #1. IV patency established. IV site checked: no pain, redness, or swelling. IV flushed thoroughly. --22:34 Monique Reynaga R.N. DISPOSITION / DISCHARGE 22:18 02/19/17. Report was given. (Delmer JUAREZ, staff nurse). --22:18 Monique Reynaga R.N. Condition at departure: improved and stable. Admitted to Acute Care. Transported via wheelchair by nurse with IV. NITO COMA SCORE: [place] Coma Scale: 15- eyes open spontaneously (4); best verbal response- oriented x 4 (5); best motor response- obeys commands (6). --22:33 Monique Reynaga R.N. 22:20 02/19/17. BP: 126/77. HR: 94. RR: 16. O2 saturation: 99%. Temp: deferred. Pain level now: 02/11. --22:33 Monique Reynaga R.N. Locked/Released at 02/19/2017 22:36 by Monique Reynaga R.N.
--- NOTE | 2017-02-19 20:21 | ED ORDER SUMMARY ---
..... Patient: CAITLYN CUEVA N OrderSheet [facility] VisitID: [id number] [place] [address] 31y, F Registration Date/Time: 02/19/2017 ORDER SHEET Weight: 104.3 kg (stated) Allergies: No Known Drug Allergy GENERAL ORDERS: US Venous Right Urgent (17:16 02/19/2017 Tangela Coyne) (Ack 17:18 Solo ER Tech1) (18:41 DDean R.N.) CBC w Diff Urgent (17:16 02/19/2017 Tangela Coyne) (Ack 17:18 Solo ECHEVARRIA Tech1) (17:22 DDean R.N.) CMP Urgent (17:16 02/19/2017 Tangela Coyne) (Ack 17:18 Solo ER Tech1) (17:22 DDean R.N.) PT with INR Urgent (17:16 02/19/2017 Tangela Coyne) (Ack 17:18 Solo ER Tech1) (17:22 DDean R.N.) PTT Urgent (17:16 02/19/2017 Tangela Coyne) (Ack 17:18 Solo ER Tech1) (17:22 DDean R.N.) Pulse oximeter (17:16 02/19/2017 Tangela Coyne) (Ack 17:18 Solo ER Tech1) (17:22 DDean R.N.) MEDICATION ORDERS: Nicoderm Topical 21 mg (NOW) (20:38 02/19/2017 Tangela Coyne) (Ack 20:57 DDean R.N.) (21:00 DDean R.N.) Lovenox Subcut 100 mg (HIGH ALERT MEDICATION, NOW) (21:21 02/19/2017 Tangela Coyne) (Ack 21:23 DDean R.N.) (21:30 DDean R.N.) IV FLUIDS: IV Saline Lock (17:03 02/19/2017 DDean R.N. per protocol) (17:04 DDean R.N.) Morphine IV 4 mg (HIGH ALERT MEDICATION, NOW) (17:16 02/19/2017 Tangela Coyne) (17:22 DDearamos R.N.) IV Saline Lock (17:16 02/19/2017 Tangela Coyne) (Cancelled: Duplicate Order17:17 DDean R.N.) Morphine IV 4 mg (HIGH ALERT MEDICATION, NOW) (21:48 02/19/2017 Tangela Conye) (22:09 DDearamos R.N.) Ativan IV 0.5 mg (HIGH ALERT MEDICATION, NOW) (21:53 02/19/2017 Tangela Coyne) (22:10 DDearamos R.N.) ORDER SHEET NOTES: [Electronically signed by Johny More Dr. (21:21 02/19/2017)] [Electronically signed by Monique Reynaga R.N. (22:36 02/19/2017)] [Electronically locked/signed by Monique Reynaga R.N. (22:36 02/19/2017)]
--- NOTE | 2017-02-19 20:21 | ED ORDER SUMMARY ---
..... Patient: CAITLYN CUEVA N OrderSheet [facility] VisitID: [id number] [place] [address] 31y, F Registration Date/Time: 02/19/2017 ORDER SHEET Weight: 104.3 kg (stated) Allergies: No Known Drug Allergy GENERAL ORDERS: US Venous Right Urgent (17:16 02/19/2017 Tangela Coyne) (Ack 17:18 Solo ER Tech1) (18:41 DDean R.N.) CBC w Diff Urgent (17:16 02/19/2017 Tangela Coyne) (Ack 17:18 Solo ECHEVARRIA Tech1) (17:22 DDean R.N.) CMP Urgent (17:16 02/19/2017 Tangela Coyne) (Ack 17:18 Solo ER Tech1) (17:22 DDean R.N.) PT with INR Urgent (17:16 02/19/2017 Tangela Coyne) (Ack 17:18 Solo ER Tech1) (17:22 DDean R.N.) PTT Urgent (17:16 02/19/2017 Tangela Coyne) (Ack 17:18 Solo ER Tech1) (17:22 DDean R.N.) Pulse oximeter (17:16 02/19/2017 Tangela Coyne) (Ack 17:18 Solo ER Tech1) (17:22 DDean R.N.) MEDICATION ORDERS: Nicoderm Topical 21 mg (NOW) (20:38 02/19/2017 Tangela Coyne) (Ack 20:57 DDean R.N.) (21:00 DDean R.N.) Lovenox Subcut 100 mg (HIGH ALERT MEDICATION, NOW) (21:21 02/19/2017 Tangela Coyne) (Ack 21:23 DDean R.N.) (21:30 DDean R.N.) IV FLUIDS: IV Saline Lock (17:03 02/19/2017 DDean R.N. per protocol) (17:04 DDean R.N.) Morphine IV 4 mg (HIGH ALERT MEDICATION, NOW) (17:16 02/19/2017 Tangela Coyne) (17:22 DDearamos R.N.) IV Saline Lock (17:16 02/19/2017 Tangela Coyne) (Cancelled: Duplicate Order17:17 DDean R.N.) Morphine IV 4 mg (HIGH ALERT MEDICATION, NOW) (21:48 02/19/2017 Tangela Coyne) (22:09 DDearamos R.N.) Ativan IV 0.5 mg (HIGH ALERT MEDICATION, NOW) (21:53 02/19/2017 Tangela Coyne) (22:10 DDearamos R.N.) ORDER SHEET NOTES: [Electronically signed by Johny More Dr. (21:21 02/19/2017)] [Electronically signed by Monique Reynaga R.N. (22:36 02/19/2017)] [Electronically locked/signed by Monique Reynaga R.N. (22:36 02/19/2017)]
--- NOTE | 2017-02-19 20:21 | ED CLINICAL REPORT ---
Clinical Report - Physicians/Mid Levels [facility] [address] [place] [address] 02/19/2017 16:41 Patient: CAITLYN CUEVA Time Seen: 1706. Arrived- By private vehicle. Historian- patient and family. HISTORY OF PRESENT ILLNESS Chief Complaint: UPPER EXTREMITY PAIN and SWELLING. Modifying factors. Not worsened by anything. Not made better by anything. This started past few days and is still present (unchanged). It was gradual in onset and has been constant but is not gone now. Severity is described as being moderate in degree. The quality is noted to be aching. Symptoms located in the area of the right arm. (reports hx of DVT. states her insurnace ran out and not on blood thinners. states she has a family history of what sounds to be factor V Leiden. patient reports no chest pain or shortness of breath.). Patient denies an injury. Similar symptoms previously: Recent medical care: Not recently seen/assessed. REVIEW OF SYSTEMS No fever, cough or skin rash. All systems otherwise negative, except as recorded above. PAST HISTORY See nurses notes. Medications: Venlafaxine HCl Oral 100 mg, daily. Clonazepam 1/2mg daily. [place] 150mg TID (hasnt had x 2 months ). Zubsolv Sublingual (Tablet Sublingual 1.4-0.36 mg) 1-1/2 tablets, daily. Allergies: No Known Drug Allergy. SOCIAL HISTORY Smoker- current status unknown. No alcohol use or drug use. No recent travel. Is a local resident. ADDITIONAL NOTES The nursing notes have been reviewed. PHYSICAL EXAM Vital Signs: 02/19/2017 16:48 BP: 141/94. HR: 89. RR: 18. O2 saturation: 99%. Temp: 98.6 F. Pain level now: 4/10. Oxygen saturation normal. Appearance: Alert. Oriented X3. No acute distress. Eyes: Pupils equal, round and reactive to light. Eyes normal inspection. ENT: Ears normal. Nose normal. Pharynx normal. Neck: Normal inspection. Neck supple. CVS: Normal heart rate and rhythm. Heart sounds normal. Respiratory: No respiratory distress. Abdomen: Soft and nontender. No organomegaly. Back: Normal inspection. No tenderness. ROM normal. Skin: Skin intact. Skin warm and dry. Normal skin color. Normal skin turgor. Extremities: Upper extremities normal to inspection. Upper extremities exhibit normal ROM. No upper extremity edema. No signs of infection present in the upper extremities. No upper extremity pulse deficit present. Upper extremity capillary refill not prolonged. No upper extremity edema. (compartments soft. no palpable cord. mild tenderness to the medial arm. no masses. no palpable cord.). Neuro: Oriented X 3. No motor deficit. No sensory deficit. LABS, X-RAYS, AND EKG Duplex Ultrasound: Right upper extremity study. (PROCEDURE: US VENOUS - RIGHT EXT INDICATION: RIGHT ARM PAIN TECHNIQUE: Duplex sonography of the deep venous system in the right upper extremity was performed. Compression and augmentation techniques were used. COMPARISON: None. FINDINGS: Echogenic occlusive thrombus of the basilic vein in the mid to distal upper arm. Internal jugular, subclavian, axillary cephalic veins are patent. IMPRESSION: 1. Occlusive thrombus of the right basilic vein .). The exam was performed by a optical engineering technician. The study was independently viewed by me and interpreted by the radiologist. The study was discussed with the radiologist (via pacs). Laboratory Tests: CBC w Diff: (JOHN: 02/19/2017 17:00) ( MsgRcvd 02/19/2017 17:28) Final results Test Result Flag Units (Reference) WHITE BLOOD COUNT 6.4 K/uL (4.5-11.5) RED BLOOD COUNT 4.26 M/uL (4.00-5.20) HEMOGLOBIN 13.1 gm/dL (12.0-16.0) HEMATOCRIT 38.8 % (36.0-46.0) MEAN CELL VOLUME 91 fL (80-100) MEAN CORPUSCULAR HGB 31 pg (26-34) MEAN CORPUSCULAR HGB CONC 34 g/dL (31-37) RED CELL DISTRIBUTION WIDTH 15.2 H % (11.6-14.8) PLATELET COUNT 312 K/uL (150-400) NEUTROPHIL % 35.5 L % (50-75) LYMPH % 56.8 H % (25-40) MONO % 4.6 % (3-14) EOSINOPHIL % 2.5 % (0-4) BASOPHIL % 0.6 % (0-2) PT with INR: (JOHN: 02/19/2017 17:00) ( MsgRcvd 02/19/2017 17:30) Final results Test Result Flag Units (Reference) INR 1.0 (0.8-1.2) Low Intensity Therapy: INR 1.5-2.0 PT range 18.5-23.1Mod.Intensity Therapy: INR 2.0-3.0 PT range 23.1-31.5High Intensity Therapy: INR 2.5-3.5 PT range 27.4-35.5High Intensity Therapy 2: INR 3.0-4.0 PT range 31.5-39.3 APTT 26 SECONDS (24-34) CMP: (JOHN: 02/19/2017 17:00) ( MsgRcvd 02/19/2017 17:33) Final results Test Result Flag Units (Reference) GLUCOSE 71 mg/dL (70-110) BUN 10 mg/dL (7-18) CREATININE 0.9 mg/dL (0.6-1.3) Estimated GFR >60 mL/min Estimated GFR- >60 mL/min Note: Persistent reduction over 3 months in eGFR<60 mL/min/1.73 m2 defines CKD. Patients with eGFR values>=60 mL/min/1.73 m2 may also have CKD if evidence ofpersistent proteinuria. Additional information may be foundat www.kidney.org. SODIUM 141 mmol/L (136-145) POTASSIUM 4.0 mmol/L (3.5-5.1) CHLORIDE 105 mmol/L (98-107) CARBON DIOXIDE 27 mmol/L (21-32) CALCIUM 8.8 mg/dL (8.5-10.1) TOTAL PROTEIN 8.2 g/dL (6.4-8.2) ALBUMIN 3.7 g/dL (3.3-5.0) BILIRUBIN, TOTAL 0.4 mg/dL (0.0-1.0) ALKALINE PHOSPHATASE 109 U/L (46-116) AST (SGOT) 43 H U/L (15-37) ALT (SGPT) 53 U/L (12-78) . PROGRESS AND PROCEDURES Course of Care: the patient is a pleasant 31-year-old female presenting for evaluation of right-sided arm pain. Patient has a concerning historywith DVTs in the past. Patient also has a family history of factor V Leiden. Be concern for acute thrombosis of the right upper extremity. Patient otherwise appears nontoxic. No signs of infection at this time. Patient is agreeable to treatment plan. We'll order laboratory studies anticoagulation studies as well as an ultrasound of the right upper Extremity. Patient is agreeable to treatment plan. All questions have been answered. patient with results noted for the findings above. Because of the patient's findings here in the emergency department, feel the patient requires admission for hospital as well as anticoagulation therapy with bridge therapy. Patient is a high risk given her situation for competitions from the blood clot. Had a discussion with patient in regards to management of the blood clots and patient is agreeable to the admission. Spoke with the hospitalist was agreeable to accepting the patient. No Other acute abnormalities noted on patient's workup otherwise. Discussed with patient her workup in the emergency department during diagnosis, and plan of care. All questions have been answered. The patient expressed understanding of these instructions and was agreeable to them. Disposition: Admitted to Acute Care. CLINICAL IMPRESSION Acute venous thrombosis of the right upper extremity in the basilic vein. (Electronically signed by Johny More Dr. 02/19/2017 21:21)
--- NOTE | 2017-02-19 22:36 | ED MAR SUMMARY ---
..... Medication Administration Record [facility] [address] [place] [address] Patient: CAITLYN CUEVA Visit ID: [id number] 31y, F Weight: 104.3 kg Height/Length: 65.5 in BMI: 37.7 ALLERGIES: No Known Drug Allergy Given 17:22 02/19/2017 Monique Reynaga R.N. Medication Administered: MORPHINE [IVP], Dose: 4 mg IVP over 1 minute(s), Site: #1 left AC. Medication Ordered: Morphine IV 4 mg (HIGH ALERT MEDICATION, NOW). Given 21:00 02/19/2017 Monique Reynaga R.N. Medication Administered: NICODERM [TOPICAL], Dose: 21 mg Patch/Pad Topical. Medication Ordered: Nicoderm Topical 21 mg (NOW). Given 21:30 02/19/2017 Monique Reynaga R.N. Medication Administered: LOVENOX [SUBCUTANEOUS] (ENOXAPARIN SODIUM), Dose: 100 mg Subcutaneous. Medication Ordered: Lovenox Subcut 100 mg (HIGH ALERT MEDICATION, NOW). Given 21:55 02/19/2017 Monique Reynaga R.N. Medication Administered: MORPHINE [IVP], Dose: 4 mg IVP over 1 minute(s), Site: #1 left AC. Medication Ordered: Morphine IV 4 mg (HIGH ALERT MEDICATION, NOW). Given 22:05 02/19/2017 Monique Reynaga R.N. Medication Administered: ATIVAN [IVP] (LORAZEPAM), Dose: 0.5 mg IVP over 1 minute(s), Site: #1 left AC. Medication Ordered: Ativan IV 0.5 mg (HIGH ALERT MEDICATION, NOW).
--- NOTE | 2017-02-19 22:36 | ED MED RECONCILIATION SUMMARY ---
Patient: CAITLYN CUEVA Medication Reconciliation Report [facility] VisitID: [id number] [address] [place] [address] 31y, F Registration Date/Time: 02/19/2017 Weight: 104.3 kg Height/Length: (not available) BMI: 37.7 ALLERGIES: No Known Drug Allergy The patient's Home Medications are listed below: THE FOLLOWING MEDICATIONS NEED TO BE RECONCILED: Clonazepam 1/2mg daily [place] 150mg TID, hasnt had x 2 months Venlafaxine HCl Oral 100 mg, daily Zubsolv Sublingual (1.4-0.36 mg) 1-1/2 tablets, daily The source(s) of the original Home Medication information: Not obtained. The following Medications were given to the patient in the Emergency Department: Morphine [IVP] IVP 4 mg, administered: 02/19/2017 5:22:00 PM NICODERM [TOPICAL] Topical 21 mg, administered: 02/19/2017 9:00:00 PM Lovenox [Subcutaneous] Subcutaneous 100 mg, administered: 02/19/2017 9:30:00 PM Morphine [IVP] IVP 4 mg, administered: 02/19/2017 9:55:00 PM Ativan [IVP] IVP 0.5 mg, administered: 02/19/2017 10:05:00 PM The following Medications were prescribed to the patient: None.
--- NOTE | 2017-02-19 22:36 | ED MED RECONCILIATION SUMMARY ---
Patient: CAITLYN CUEVA Medication Reconciliation Report [facility] VisitID: [id number] [address] [place] [address] 31y, F Registration Date/Time: 02/19/2017 Weight: 104.3 kg Height/Length: (not available) BMI: 37.7 ALLERGIES: No Known Drug Allergy The patient's Home Medications are listed below: THE FOLLOWING MEDICATIONS NEED TO BE RECONCILED: Clonazepam 1/2mg daily [place] 150mg TID, hasnt had x 2 months Venlafaxine HCl Oral 100 mg, daily Zubsolv Sublingual (1.4-0.36 mg) 1-1/2 tablets, daily The source(s) of the original Home Medication information: Not obtained. The following Medications were given to the patient in the Emergency Department: Morphine [IVP] IVP 4 mg, administered: 02/19/2017 5:22:00 PM NICODERM [TOPICAL] Topical 21 mg, administered: 02/19/2017 9:00:00 PM Lovenox [Subcutaneous] Subcutaneous 100 mg, administered: 02/19/2017 9:30:00 PM Morphine [IVP] IVP 4 mg, administered: 02/19/2017 9:55:00 PM Ativan [IVP] IVP 0.5 mg, administered: 02/19/2017 10:05:00 PM The following Medications were prescribed to the patient: None.
--- NOTE | 2017-02-19 22:36 | ED DISCHARGE INSTRUCTIONS ---
Patient: CAITLYN CUEVA General Instructions [facility] VisitID: [id number] [address] [place] [address] 31y, F Registration Date/Time: 02/19/2017 Acute venous thrombosis of the right upper extremity in the basilic vein. (Electronically signed by Johny More Dr. 02/19/2017 21:21)
--- NOTE | 2017-02-19 22:36 | ED MAR SUMMARY ---
..... Medication Administration Record [facility] [address] [place] [address] Patient: CAITLYN CUEVA Visit ID: [id number] 31y, F Weight: 104.3 kg Height/Length: 65.5 in BMI: 37.7 ALLERGIES: No Known Drug Allergy Given 17:22 02/19/2017 Monique Reynaga R.N. Medication Administered: MORPHINE [IVP], Dose: 4 mg IVP over 1 minute(s), Site: #1 left AC. Medication Ordered: Morphine IV 4 mg (HIGH ALERT MEDICATION, NOW). Given 21:00 02/19/2017 Monique Reynaga R.N. Medication Administered: NICODERM [TOPICAL], Dose: 21 mg Patch/Pad Topical. Medication Ordered: Nicoderm Topical 21 mg (NOW). Given 21:30 02/19/2017 Monique Reynaga R.N. Medication Administered: LOVENOX [SUBCUTANEOUS] (ENOXAPARIN SODIUM), Dose: 100 mg Subcutaneous. Medication Ordered: Lovenox Subcut 100 mg (HIGH ALERT MEDICATION, NOW). Given 21:55 02/19/2017 Monique Reynaga R.N. Medication Administered: MORPHINE [IVP], Dose: 4 mg IVP over 1 minute(s), Site: #1 left AC. Medication Ordered: Morphine IV 4 mg (HIGH ALERT MEDICATION, NOW). Given 22:05 02/19/2017 Monique Reynaga R.N. Medication Administered: ATIVAN [IVP] (LORAZEPAM), Dose: 0.5 mg IVP over 1 minute(s), Site: #1 left AC. Medication Ordered: Ativan IV 0.5 mg (HIGH ALERT MEDICATION, NOW).
--- NOTE | 2017-02-19 22:36 | ED DISCHARGE INSTRUCTIONS ---
Patient: CAITLYN CUEVA General Instructions [facility] VisitID: [id number] [address] [place] [address] 31y, F Registration Date/Time: 02/19/2017 Acute venous thrombosis of the right upper extremity in the basilic vein. (Electronically signed by Johny More Dr. 02/19/2017 21:21)
[2017-02-19 22:59] VITALS: BP 127/77
--- NOTE | 2017-02-19 23:31 | History & Physical Report ---
Information Source Information Source: Self Reliability: Good History Chief Complaint right arm pain and swelling History of Present Illness Patient is a 31 year old female with a remote history of multiple blood clots in the past presenting to the ER with another blood clot in her right upper extremity. Patient had been in her usual state of health when she noticed that her arm was becoming more painful and swollen. Patient claims that she did not injure it anywhere nor did she have any sort of inciting factor including prolongued arm stasis or prolongued immobilization. Patient first noticed the pain that began as a tighness deep within her bicep but later progressed to more throbbing like pain. Patient recognized this as a blood clot given her history and came to the hospital. Patient is otherwise stable and has no other symptoms at the moment. Patient History 1. Thrombosis of right upper extremity 2. Coagulopathy Social History Patient is currently unemployed. Patient smokes 1/3 of a pack a day of cigarettes, for the past year. Patient rarely drinks and rarely uses marijuana. Family History Family history was reviewed; no changes noted. Medications and Allergies Medications Home Medications Clonazapem .5 mg daily Venlafaxine 150 mg daily Zubzolv 1.4 mg daily Current Medications Sig/Mick Start time Last Medication Dose Route Stop Time Status Admin Enoxaparin Sodium 100 MG BID 02/20 0900 AC SC Acetaminophen 650 MG Q6H PRN 02/19 2315 AC 02/20 PO 0032 Allergies Uncoded Allergies: GREEN OLIVES (Intermediate, LIPS SWELLED AND CRACKED 02/20/17) Review of Systems Constitutional Denies: Fever, Chills, Sweats, Weakness, Malaise, Other. Eyes Denies: Pain, Vision Change, Conjunctival Inflammation, Eyelid Inflammation, Redness, Other. ENT Denies: Ear Pain, Ear Discharge, Nose Pain, Nasal Discharge, Nasal Congestion, Mouth Pain, Mouth Swelling, Throat Pain, Throat Swelling, Other. Respiratory Denies: Cough, Dry, SOB w/exertion, Wheezing, Hemoptysis, Pleuritic Pain, Sputum , Other. Cardiovascular Denies: Chest Pain, Palpitations, Orthopnea, PND, Edema, Light-headedness, Other. Gastrointestinal Denies: Nausea, Vomiting, Abdominal Pain, Diarrhea, Constipation, Melena, Hematochezia, Other. Genitourinary Denies: Dysuria, Frequency, Incontinence, Hematuria, Retention, Other. Musculoskeletal Denies: Neck Pain, Shoulder Pain, Arm Pain, Back Pain, Hand Pain, Leg Pain, Foot Pain, Other. Skin Denies: Rash, Lesions, Jaundice, Bruising, Other. Neurological Denies: Weakness, Numbness, Incoordination, Change in speech, Confusion, Seizures, Other. Physical Exam Vital Signs / I&Os Vital Signs Date Time Temp Pulse Resp B/P Pulse O2 O2 Flow FiO2 Ox Delivery Rate 02/20 0246 98.1 91 18 111/57 94 Room Air 02/20 0056 Room Air 02/19 2259 98.2 88 18 127/77 100 Room Air I&O 02/19 0800 02/19 1600 02/20 0000 Intake Total Output Total 75 Balance -75 General Appearance Alert, Oriented X3, Cooperative, No acute distress HEENT Atraumatic, PERRLA, Moist mucous membranes Lungs Clear to auscultation, Normal air movement Neck Supple, No JVD, No masses Cardiovascular Regular rate and rhythm, Normal S1 and S2, No murmurs, gallops, rubs Abdomen Normal bowel sounds, No tenderness, No guarding Extremities No cyanosis, No clubbing, Normal pulses, - tenderness to right inner bicep - no erythema or nika swelling noted Skin No Breakdown, No Significant Lesions Neurological Normal gait, Normal speech, Sensation intact, Cranial nerves intact , Strength 5/5 x4 ext's Psych/Mental Status Mood normal LAB Results Laboratory Tests 02/19 1700 Chemistry Plasma Sodium (136 - 145 mmol/L) 141 Plasma Potassium (3.5 - 5.1 mmol/L) 4.0 Plasma Chloride (98 - 107 mmol/L) 105 CO2 (Enzymatic) (21 - 32 mmol/L) 27 BUN (7 - 18 mg/dL) 10 Creatinine (0.6 - 1.3 mg/dL) 0.9 Est GFR ( Amer) (mL/min) >60 Est GFR (Non-Af Amer) (mL/min) >60 Glucose (70 - 110 mg/dL) 71 Plasma Calcium (8.5 - 10.1 mg/dL) 8.8 Total Bilirubin (0.0 - 1.0 mg/dL) 0.4 AST (15 - 37 U/L) 43 ALT (12 - 78 U/L) 53 Alkaline Phosphatase (46 - 116 U/L) 109 Total Protein (6.4 - 8.2 g/dL) 8.2 Albumin (3.3 - 5.0 g/dL) 3.7 Coagulation INR (0.8 - 1.2) 1.0 APTT (24 - 34 SECONDS) 26 Hematology WBC (4.5 - 11.5 K/uL) 6.4 RBC (4.00 - 5.20 M/uL) 4.26 Hgb (12.0 - 16.0 gm/dL) 13.1 Hct (36.0 - 46.0 %) 38.8 MCV (80 - 100 fL) 91 MCH (26 - 34 pg) 31 RDW (11.6 - 14.8 %) 15.2 Neut % (Auto) (50 - 75 %) 35.5 Lymph % (Auto) (25 - 40 %) 56.8 [place] % (Auto) (3 - 14 %) 4.6 Eos % (Auto) (0 - 4 %) 2.5 Baso % (Auto) (0 - 2 %) 0.6 Plt Count, EDTA (150 - 400 K/uL) 312 PUBS MCHC (31 - 37 g/dL) 34 Assessment and Plan Problem List 1. Thrombosis of right upper extremity Plan - patient has a history of blood clots in the past however has never been put on [facility] anti coagulation - patient has relatives with factor 5 leiden including siste - patient has never been tested - willl initiate testing here and patient can follow up - daily inr - will start bridge from lovenox to coumadin - will have social work speak to the patient regarding obtaining insurance 2. Anxiety Plan - pt has an established history of anxiety - will continue with home medications - Zubzolv is not formulary and pt will need to bring it from home 3. Coagulopathy Plan - will test for factor 5 - daily inr
[2017-02-20] MEDS ORDERED: CLONAZEPAM0.5 MG PO (01:34)
[2017-02-20] MEDS ORDERED: LITHIUM CARBON150 MG PO (01:35)
[2017-02-20] MEDS ORDERED: EFFEXOR25 MG PO (01:36)
[2017-02-20] MEDS ORDERED: ZUBSOLV SUB PO (01:37)
[2017-02-20 02:46] VITALS: BP 111/57
[2017-02-20 07:20] VITALS: BP 121/73
[2017-02-20 10:28] VITALS: BP 139/78
--- NOTE | 2017-02-20 10:53 | Progress Note ---
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 Patient had been in her usual state of health when she noticed that her arm was becoming more painful and swollen. Patient claims that she did not injure it anywhere nor did she have any sort of inciting factor including prolongued arm stasis or prolongued immobilization. Patient first noticed the pain that began as a tighness deep within her bicep but later progressed to more throbbing like pain. Patient recognized this as a blood clot given her history and came to the hospital. Patient is otherwise stable and has no other symptoms at the moment. Swelling and pain in right arm is better, no dyspnea or chest pain no fever or chills, states did not had coumadin today Review of system: Respiratory system: Negative for shortness of breath or chest pain Constitutional: Negative for fever or chills MK S: Positive for pain and swelling in right upper arm Physical Exam Vital Signs / I&Os Vital Signs Date Time Temp Pulse Resp B/P Pulse O2 O2 Flow FiO2 Ox Delivery Rate 02/20 1028 98.8 85 18 139/78 100 02/20 0928 Room Air 02/20 0720 98.2 86 18 121/73 100 02/20 0246 98.1 91 18 111/57 94 Room Air 02/20 0056 Room Air 02/19 2259 98.2 88 18 127/77 100 Room Air I&O 02/20 0000 02/19 1600 02/19 0800 Intake Total Output Total 75 Balance -75 General Appearance No acute distress Lungs Clear to auscultation Neck Supple Cardiovascular Regular rate and rhythm, Normal S1 and S2, No murmurs, gallops, rubs Abdomen Normal bowel sounds, Soft, No tenderness Extremities edema in right upper arm, no erythema Skin No Rashes Psych/Mental Status Mental status normal LAB Results Laboratory Tests 02/20 02/19 0515 1700 Chemistry Plasma Sodium (136 - 145 mmol/L) 140 141 Plasma Potassium (3.5 - 5.1 mmol/L) 4.1 4.0 Plasma Chloride (98 - 107 mmol/L) 106 105 CO2 (Enzymatic) (21 - 32 mmol/L) 25 27 BUN (7 - 18 mg/dL) 8 10 Creatinine (0.6 - 1.3 mg/dL) 0.7 0.9 Est GFR ( Amer) (mL/min) >60 >60 Est GFR (Non-Af Amer) (mL/min) >60 >60 Glucose (70 - 110 mg/dL) 91 71 Plasma Calcium (8.5 - 10.1 mg/dL) 8.5 8.8 Plasma Magnesium (1.8 - 2.4 mg/dL) 2.0 Total Bilirubin (0.0 - 1.0 mg/dL) 0.5 0.4 AST (15 - 37 U/L) 32 43 ALT (12 - 78 U/L) 46 53 Alkaline Phosphatase (46 - 116 U/L) 96 109 Total Protein (6.4 - 8.2 g/dL) 6.4 8.2 Albumin (3.3 - 5.0 g/dL) 3.2 3.7 Coagulation INR (0.8 - 1.2) 1.0 APTT (24 - 34 SECONDS) 26 Hematology WBC (4.5 - 11.5 K/uL) 6.6 6.4 RBC (4.00 - 5.20 M/uL) 4.06 4.26 Hgb (12.0 - 16.0 gm/dL) 12.5 13.1 Hct (36.0 - 46.0 %) 37.0 38.8 MCV (80 - 100 fL) 91 91 MCH (26 - 34 pg) 31 31 RDW (11.6 - 14.8 %) 15.0 15.2 Neut % (Auto) (50 - 75 %) 34 35.5 Lymph % (Auto) (25 - 40 %) 60 56.8 [place] % (Auto) (3 - 14 %) 2 4.6 Eos % (Auto) (0 - 4 %) 2 2.5 Baso % (Auto) (0 - 2 %) 0 0.6 Band Neutrophils % (0 - 8 %) 2 Metamyelocytes % (0 - 1 %) 0 Myelocytes (0 - 1 %) 0 Other Cell Type 0 Plt Count, EDTA (150 - 400 K/uL) 275 312 Poikilocytosis (manual 1+ Anisocytosis (manual) 1+ PUBS MCHC (31 - 37 g/dL) 34 34 Assessment and Plan Problem List 1. Thrombosis of right upper extremity Plan start coumadin, on Lovenox already monitor CBC 2. Coagulopathy Plan Factor 5 is pending 3. Anxiety Plan controlled pt is doing fine
[2017-02-20 14:14] VITALS: BP 128/84
[2017-02-20 18:51] VITALS: BP 136/71
[2017-02-20 22:39] VITALS: BP 113/71
[2017-02-21 02:41] VITALS: BP 106/94
[2017-02-21 07:06] VITALS: BP 128/80
[2017-02-21 11:14] VITALS: BP 102/60
[2017-02-21] MEDS ORDERED: Enoxaparin Sodium SC (14:05)
[2017-02-21] MEDS ORDERED: WARFARIN SODIUM5 MG PO (14:05)
--- NOTE | 2017-02-21 15:24 | DISCHARGE SUMMARY ---
ADMIT DATE: 02/19/2017 DISCHARGE DATE: 02/21/2017 DISCHARGE DIAGNOSES: 1. Deep vein thrombosis of the right upper extremity. 2. Coagulopathy. 3. Anxiety BRIEF HISTORY: This is a 31-year-old white female who was admitted 2 days ago. The patient presented to the emergency department with swelling and pain in the right upper arm without any injury. This began as a tightness deep in his biceps, later on progressed to throbbing pain. Because the patient had a history of multiple DVTs in the past, recognized the danger and came to the emergency department for further evaluation. In the emergency department showed the patient has a DVT in the right upper arm. HOSPITAL COURSE: The patient was admitted in the hospital and started on Lovenox , also the patient was started on Coumadin 5 mg daily. Also factor V Leiden was sent for evaluation, which is not back yet. The patient states that she has a family history of factor V Leiden deficiency. The patient's arm improved significantly during the hospital course. Swelling went down. No more pain. The patient is doing fine. Denies any shortness of breath or chest pain. She is willing to go home to inject Lovenox at home along with taking of Coumadin because the patient has done this before and she is quite familiar with injection of the Lovenox. DISCHARGE INSTRUCTIONS/MEDICATIONS: Disposition: The patient will be discharged home to follow up with her primary care physician within 2 or 3 days because the patient needs INR to be checked on Thursday. We increased the Coumadin to 7.5 mg daily to get INR sooner. Discharge medications will be: 1. Coumadin 7.5 mg daily. 2. Effexor 100 mg daily. 3. [place] 300 mg daily. 4. Lovenox 100 mg twice a day, supply of 7 days. 5. So again, the patient was instructed to check INR on this coming Thursday in her primary care physician. She understands and agrees with that. She also agrees to take Lovenox 100 mg twice a day until the protime INR to get to over 2 and she is going to stop Lovenox and continue with the Coumadin. Coumadin needs to be adjusted per INR reading by her primary care physician.
== END 2017-02-21 14:55 | disposition home or self-care (01) | DRG 197 ==
LOC: ED SRH 16:40 → TRANS SRH 20:27 → ACUTE2 SRH 22:23
PROVIDERS: ADMIT Internal Medicine
DX: I82.621 Acute embolism and thrombosis of deep veins of right upper extremity (principal); D68.9 Coagulation defect, unspecified; Z86.718 Personal history of other venous thrombosis and embolism; Z83.2 Family history of diseases of the blood and blood-forming organs and certain disorders involving the immune mechanism; F41.9 Anxiety disorder, unspecified; F17.210 Nicotine dependence, cigarettes, uncomplicated